=== PATIENT | female | born 1975 | race Caucasian/White ===

== ENCOUNTER 2017-02-28 11:34 | Emergency (ER) | payer MEDICAID ==
[2017-02-28 11:48] VITALS: RESP 16; TEMP 97.9
--- NOTE | 2017-02-28 11:52 | CPEKG ---
Heart Rate: 75 RR Interval: 800 P-R Interval: 160 QRSD Interval: 82 QT Interval: 368 QTC Interval: 411 P Cove: 24 QRS Cove: 41 T Wave Cove: 5 EKG Severity - NORMAL ECG - EKG Impression: SINUS RHYTHM Electronically Signed By: Chuck Jordan 01-Mar-2017 10:51:11
--- NOTE | 2017-02-28 12:11 | EDPHY ---
H & P Stated Complaint: CP since 2 am woke up with it. Time Seen by Provider: 02/28/17 11:45 HPI/ROS: CHIEF COMPLAINT: Chest discomfort HISTORY OF PRESENT ILLNESS: 41-year-old female reports waking at 2 o'clock this morning with right-sided chest discomfort which was worse with breathing. She said it felt sore like she might have pulled something. She was able go back to sleep. When she got up this morning she felt better, with only vague discomfort, but noticed that she was short of breath when she was walking her dog. She then reports bending down and developing significant right-sided chest discomfort. Discomfort has been present now for greater than 5 hours. Has been present now for several hours. Worse with inspiration, worse with movement, worse with raising her arms above her head. Pain radiates from the right parasternal region to the the substernal area. No nausea or vomiting. No palpitations. No dizziness. No lightheadedness. No fainting. She does report having a URI with significant sneezing and coughing. She also notes that over the last 3 weeks she has had issues with vomiting and diarrhea which she relates to increased stress. Patient returned 3 weeks ago from a trip to [place]. REVIEW OF SYSTEMS: Aside from elements discussed in the HPI, a comprehensive 10-point review of systems was reviewed and is negative. PAST MEDICAL HISTORY: Hypercholesterolemia. No history of hypertension or diabetes. No known coronary artery disease history. No personal history of DVTs or PEs. No family history. SOCIAL HISTORY: Smoker. Quit 4 years ago. Prior history of heavy alcohol use , none for several years. Denies illicit drugs. VITAL SIGNS: see nurse's notes. GENERAL: Well-developed, well-nourished, in mild discomfort when moving or raising her arms.. Patient rates the discomfort as 6/10. HEENT: Atraumatic. Eyes: No injection or icterus. Oropharynx: No erythema , no injection, no swelling. Neck: No JVD, no bruits, supple with no adenopathy. LUNGS: Clear to auscultation bilaterally, no wheezes, rhonchi or rales. CHEST: Palpable and reproducible tenderness to the right of his sternum at the level of T4. Just at the superior edge of the patient's breast. No crepitus. No warmth. No rash. CARDIAC: Regular rate and rhythm, no murmurs, no rubs, no gallops. ABDOMEN: Soft, nontender, nondistended, bowel sounds normal. BACK: No CVA tenderness. EXTREMITIES: No trauma. No clubbing, cyanosis or edema. Range of motion is normal throughout. NEURO: Alert and oriented , grossly nonfocal. SKIN: No diaphoresis, warm and dry, no rash. Scattered spider hemangiomas. - Personal History LMP (Females 10-55): Over 28 Days Ago Current Tetanus Diphtheria and Acellular Pertussis (TDAP): Yes - Medical/Surgical History Other PMH: back pain, high cholesterol, mild bipolar and PTSD - Social History Smoking Status: Former smoker Constitutional: Initial Vital Signs Temperature (C) 36.6 C 02/28/17 11:45 Heart Rate 82 02/28/17 11:45 Respiratory Rate 16 02/28/17 11:45 Blood Pressure 119/81 H 02/28/17 11:45 O2 Sat (%) 93 02/28/17 11:45 O2 Delivery Mode Room Air Allergies/Adverse Reactions: aspirin [Aspirin] Allergy (Intermediate, Verified 02/28/17 11:49) latex [Latex] Allergy (Intermediate, Verified 02/28/17 11:49) Sulfa (Sulfonamide Antibiotics) Allergy (Intermediate, Verified 02/28/17 11:49) hydrocodone bitartrate [From Vicodin] Allergy (Verified 02/28/17 11:49) nausea Home Medications: Medication Instructions Recorded Cyclobenzaprine [Flexeril 10 MG 10 mg PO TID 04/03/12 (RX)] Simvastatin [Zocor 40 mg (RX)] 40 mg PO DAILY18 04/03/12 Tramadol HCl [Ultram] 50 mg PO 04/03/12 SEROQUEL 09/03/13 Bupropion HCl 02/28/17 Guanfacine HCl 02/28/17 Ibuprofen 02/28/17 Viorele 28 Day Tablet 02/28/17 Medical Decision Making - Diagnostics EKG Interpretation: 12-LEAD EKG: Please see the full report in [facility]. My interpretation: Normal sinus rhythm Imaging Results: Imaging Impressions Chest X-Ray 02/28/17 11:57 Impression: No acute pulmonary disease. Imaging: I viewed and interpreted images myself ED Course/Re-evaluation: 41-year-old female presenting with chest discomfort on the right side which she noticed while sleeping last night. Pain and was present when she woke this morning but much less. Discomfort has continued through the morning. Pain is reproducible. Evaluation demonstrates a normal, nonischemic EKG, negative troponin despite greater than 4 hours of discomfort, normal lipase, normal liver function tests, negative D-dimer and normal chest x-ray. Patient received Toradol IV. We discussed reasons for her discomfort including muscle wall pain, pleurisy, reflux. We discussed reasons to return to the emergency department including persistent or worsening pain, palpitations, lightheadedness, fainting, radiation of pain into the neck or jaw, pain into the back, fevers or chills. Patient was advised to use ibuprofen on a regular basis, and was given a short course of oxycodone. She was also advised to watch for gastric upset in the setting of NSAID use. Differential Diagnosis: After history and physical examination, the differential for chest pain was considered, including but not limited to, myocardial ischemia, acute coronary syndrome, pulmonary embolus, chest wall pain, pleural inflammation and pulmonary infectious causes. - Data Points Laboratory Results: Laboratory Results 02/28/17 12:05 02/28/17 12:05 02/28/17 02/28/17 02/28/17 12:05 12:05 12:05 WBC RBC Hgb Hct MCV MCH MCHC RDW Plt Count MPV Neut % (Auto) Lymph % (Auto) Nelson % (Auto) Eos % (Auto) Baso % (Auto) Nucleat RBC Rel Count Absolute Neuts (auto) Absolute Lymphs (auto) Absolute Monos (auto) Absolute Eos (auto) Absolute Basos (auto) Absolute Nucleated RBC Immature Gran % Immature Gran # D-Dimer < 0.27 ug/mLFEU ug/mLFEU (0.00-0.50) Sodium 140 mEq/L mEq/L (134-144) Potassium 4.2 mEq/L mEq/L (3.5-5.2) Chloride 104 mEq/L mEq/L (97-110) Carbon Dioxide 22 mEq/l mEq/l (22-31) Anion Gap 14 mEq/L mEq/L (8-16) BUN 9 mg/dL mg/dL (7-23) Creatinine 0.7 mg/dL mg/dL (0.6-1.0) Estimated GFR > 60 Glucose 102 mg/dL H mg/dL (70-100) Calcium 9.1 mg/dL mg/dL (8.5-10.4) Total Bilirubin 0.2 mg/dL mg/dL (0.1-1.4) Conjugated Bilirubin 0.1 mg/dL mg/dL (0.0-0.5) Unconjugated Bilirubin 0.1 mg/dL mg/dL (0.0-1.1) AST 20 IU/L IU/L (14-46) ALT 30 IU/L IU/L (9-52) Alkaline Phosphatase 55 IU/L IU/L (38-126) Troponin I < 0.012 ng/mL ng/mL (0-0.034) Total Protein 6.8 g/dL g/dL (6.3-8.2) Albumin 3.8 g/dL g/dL (3.5-5.0) Lipase 220.0 IU/L IU/L (23-300) Beta HCG, Qual NEGATIVE 02/28/17 12:05 WBC 9.75 10^3/uL H 10^3/uL (3.80-9.50) RBC 4.36 10^6/uL 10^6/uL (4.18-5.33) Hgb 12.6 g/dL g/dL (12.6-16.3) Hct 37.5 % L % (38.0-47.0) MCV 86.0 fL fL (81.5-99.8) MCH 28.9 pg pg (27.9-34.1) MCHC 33.6 g/dL g/dL (32.4-36.7) RDW 13.8 % % (11.5-15.2) Plt Count 344 10^3/uL 10^3/uL (150-400) MPV 9.4 fL fL (8.7-11.7) Neut % (Auto) 54.9 % % (39.3-74.2) Lymph % (Auto) 33.3 % % (15.0-45.0) Nelson % (Auto) 8.1 % % (4.5-13.0) Eos % (Auto) 2.9 % % (0.6-7.6) Baso % (Auto) 0.4 % % (0.3-1.7) Nucleat RBC Rel Count 0.0 % % (0.0-0.2) Absolute Neuts (auto) 5.35 10^3/uL 10^3/uL (1.70-6.50) Absolute Lymphs (auto) 3.25 10^3/uL H 10^3/uL (1.00-3.00) Absolute Monos (auto) 0.79 10^3/uL 10^3/uL (0.30-0.80) Absolute Eos (auto) 0.28 10^3/uL 10^3/uL (0.03-0.40) Absolute Basos (auto) 0.04 10^3/uL 10^3/uL (0.02-0.10) Absolute Nucleated RBC 0.00 10^3/uL 10^3/uL (0-0.01) Immature Gran % 0.4 % % (0.0-1.1) Immature Gran # 0.04 10^3/uL 10^3/uL (0.00-0.10) D-Dimer Sodium Potassium Chloride Carbon Dioxide Anion Gap BUN Creatinine Estimated GFR Glucose Calcium Total Bilirubin Conjugated Bilirubin Unconjugated Bilirubin AST ALT Alkaline Phosphatase Troponin I Total Protein Albumin Lipase Beta HCG, Qual Medications Given: Discontinued Medications Ketorolac Tromethamine (Toradol) 15 mg IVP EDNOW ONE Stop: 02/28/17 12:59 Last Admin: 02/28/17 13:12 Dose: 15 mg Departure - Departure Disposition: Home, Routine, Self-Care Clinical Impression: Chest wall pain Chest pain Qualifiers: Chest pain type: chest pain on breathing Qualified Code(s): R07.1 - Chest pain on breathing Condition: Good Instructions: Pleurisy (ED), Costochondritis (ED), Chest Pain (ED) Additional Instructions: I suspect your chest pain may be due to chest wall discomfort, inflammation in the cartilage, or even pleurisy. All of these are treated with nonsteroidal anti-inflammatory medications, as well as narcotic pain medication if needed. I recommend Ibuprofen (Motrin, Advil) or Naproxen Sodium (Aleve) for pain and anti-inflammatory effects. You may take either one, but do not take both. Your dose is: Ibuprofen 600 mg every 6-8 hours with food. OR Naproxen Sodium (Aleve) 220 mg every 12 hours. You been given a prescription for oxycodone. Please use this as needed for significant discomfort. Return to the emergency department or follow up urgently with her primary care physician if your pain is worsening despite the above treatment, if he developed a significant rash, palpitations, lightheadedness, dizziness, sweating , or fainting. If your stomach is upset secondary to the use of nonsteroidals, you may take Maalox or Mylanta or Tums Referrals: Antionette Hardy MD [Primary Care Provider] - As per Instructions
[2017-02-28 12:22] LABS: % IMMATURE GRANULYOCYTES 0.4 % (0.0-1.1); ABSOLUTE IMMATURE GRANULOCYTES 0.04 10^3/uL (0.00-0.10); ADD DIFF? NO; ADD MORPH? NO; ADD SCAN? NO; ATYPICAL LYMPHOCYTE FLAG 10 (0-99); FRAGMENT RBC FLAG 0 (0-99); HEMATOCRIT 37.5 % (38.0-47.0); HEMOGLOBIN 12.6 g/dL (12.6-16.3); LEFT SHIFT FLG 0 (0-99); LIPEMIA HEMOLYSIS FLAG 80 (0-99); MEAN CELL HEMOGLOBIN 28.9 pg (27.9-34.1); MEAN CELL HEMOGLOBIN CONCENTR. 33.6 g/dL (32.4-36.7); MEAN PLATELET VOLUME 9.4 fL (8.7-11.7); PLATELET CLUMPS FLAG 0 (0-99); PLATELET COUNT 344 10^3/uL (150-400); RED BLOOD CELL COUNT 4.36 10^6/uL (4.18-5.33); RED CELL DISTRIBUTION WIDTH 13.8 % (11.5-15.2)
[2017-02-28 12:33] LABS: ALANINE AMINOTRANSFERASE 30 IU/L (9-52); ALBUMIN 3.8 g/dL (3.5-5.0); ALKALINE PHOSPHATASE 55 IU/L (38-126); ANION GAP 14 mEq/L (8-16); ASPARTATE AMINOTRANSFERASE 20 IU/L (14-46); BILIRUBIN,TOTAL 0.2 mg/dL (0.1-1.4); BILIRUBIN-CONJUGATED 0.1 mg/dL (0.0-0.5); BILIRUBIN-UNCONJUGATED 0.1 mg/dL (0.0-1.1); CALCIUM 9.1 mg/dL (8.5-10.4); CARBON DIOXIDE 22 mEq/l (22-31); CHLORIDE 104 mEq/L (97-110); CREATININE 0.7 mg/dL (0.6-1.0); GLOMERULAR FILTRATION RATE > 60; GLUCOSE 102 mg/dL (70-100); POTASSIUM 4.2 mEq/L (3.5-5.2); SODIUM 140 mEq/L (134-144); TOTAL PROTEIN 6.8 g/dL (6.3-8.2)
[2017-02-28 12:44] LABS: TROPONIN I < 0.012 ng/mL (0-0.034)
[2017-02-28] MEDS ORDERED: KETOROLAC 30 MG/1 ML SDV IVP ONE (12:58)
[2017-02-28] MEDS ORDERED: NS 500 ML IV ONE (12:58)
[2017-02-28 15:21] VITALS: BP 102/52; PULSE 67; O2SAT 95
== END 2017-02-28 13:42 | disposition home or self-care (01) ==
LOC: CED 11:34
DX: R07.1 Chest pain on breathing (principal); Z87.891 Personal history of nicotine dependence; Z91.040 Latex allergy status
CPT/HCPCS: 71020-PO; 80048-PO; 80076-PO; 83690-PO; 84484-PO; 84703-PO; 85025-PO; 85378-PO; 96374; J1885

== ENCOUNTER 2017-09-03 15:25 | Emergency (ER) | payer MEDICAID ==
[2017-09-03 15:37] VITALS: BP 142/80; PULSE 80; RESP 16; TEMP 98.8; O2SAT 95
[2017-09-03] MEDS ORDERED: traMADol 50 MG TAB PO ONE (15:51)
[2017-09-03] MEDS ORDERED: CYCLOBENZAPRINE 10 MG TAB PO ONE (15:51)
--- NOTE | 2017-09-03 15:56 | EDPHY ---
H & P Stated Complaint: fall on [address] . right ankle , left lower back pain . over 24hours Time Seen by Provider: 09/03/17 15:31 HPI/ROS: CHIEF COMPLAINT: Back and ankle pain HISTORY OF PRESENT ILLNESS: This is a 41-year-old female with long history of low back pain for which she takes tramadol and Flexeril as needed. She slipped on the ice over 24 hr ago, twisting her right ankle and landing on her back. She has had persistent low back pain radiating into her left hip since the fall. She denies leg numbness, leg weakness, and bowel or bladder problems. She has been able to walk but has pain involving the right ankle with weight- bearing. She took 1 tramadol the night that this event occurred and took 600 mg of ibuprofen this morning. She is not otherwise treated her pain. She denies other injuries with this fall. She did not strike her head. REVIEW OF SYSTEMS: A ten point review of systems was performed and is negative with the exception of the items mentioned in the HPI. Past medical history: 1. Bipolar disease 2. Reactive airway disease 3. Low back pain 4. Hyperlipidemia Social history: She does not use tobacco or alcohol products. General Appearance: Alert. Vital signs reviewed. Eyes: Pupils equal and round, no conjunctival injection, no discharge. Anicteric. ENT, Mouth: Mucous membranes are moist, no oropharyngeal erythema or edema. Neck: Nontender to palpation over the cervical spine in the midline. Respiratory: Lungs are clear to auscultation; no wheezes, rales, or rhonchi. Cardiovascular: Regular rate and rhythm; no murmur, rub, or gallop. Gastrointestinal: Abdomen is soft and nontender, no masses or organomegaly, bowel sounds normal. Skin: Warm and dry, no rashes on exposed skin, normal color. Back: Mild tenderness to palpation over the lower lumbar spine with through the bulk of her tenderness being in the left paraspinous musculature. Extremities: No lower extremity edema, no calf tenderness or swelling. Neurological: Alert and oriented. Moving all four extremities easily and equally. Strength is 5 over 5 bilaterally with testing of major motor groups in both lower extremities Sensation is intact to light touch over both lower extremities. Deep tendon reflexes are 2+ in the biceps and knees bilaterally. Psychiatric: Normal affect. - Personal History LMP (Females 10-55): 15-21 Days Ago Current Tetanus Diphtheria and Acellular Pertussis (TDAP): Yes - Medical/Surgical History Hx Asthma: Yes Hx Chronic Respiratory Disease: No Hx Diabetes: No Hx Cardiac Disease: No Hx Renal Disease: No Hx Cirrhosis: No Hx Alcoholism: No Hx HIV/AIDS: No Hx Splenectomy or Spleen Trauma: No Other PMH: back pain, high cholesterol, mild bipolar and PTSD - Social History Smoking Status: Former smoker Constitutional: Initial Vital Signs Temperature (C) 37.1 C 09/03/17 15:31 Heart Rate 80 09/03/17 15:31 Respiratory Rate 16 09/03/17 15:31 Blood Pressure 142/80 H 09/03/17 15:31 O2 Sat (%) 95 09/03/17 15:31 O2 Delivery Mode Room Air Allergies/Adverse Reactions: aspirin [Aspirin] Allergy (Intermediate, Verified 09/03/17 15:35) latex [Latex] Allergy (Intermediate, Verified 09/03/17 15:35) Sulfa (Sulfonamide Antibiotics) Allergy (Intermediate, Verified 09/03/17 15:35) hydrocodone bitartrate [From Vicodin] Allergy (Verified 09/03/17 15:35) nausea Home Medications: Medication Instructions Recorded Cyclobenzaprine [Flexeril 10 MG 10 mg PO TID 04/03/12 (RX)] Simvastatin [Zocor 40 mg (RX)] 40 mg PO DAILY18 04/03/12 Tramadol HCl [Ultram] 50 mg PO 04/03/12 SEROQUEL 09/03/13 Bupropion HCl 02/28/17 Guanfacine HCl 02/28/17 Ibuprofen 02/28/17 Viorele 28 Day Tablet 02/28/17 oxyCODONE/APAP 5/325 [Percocet 1 tab PO QID PRN #10 tab 02/28/17 5/325 (*)] CYCLOBENZAPRINE HCL [Flexeril] 5 mg PO TIDPRN PRN #12 tab 09/03/17 traMADol [Ultram 50 mg (*)] 50 mg PO Q6 #12 tab 09/03/17 Medical Decision Making - Diagnostics Imaging Results: Imaging Impressions Ankle X-Ray 09/03/17 15:51 Impression: 1. No acute osseous abnormality seen about the right ankle. 2. Lateral ankle sprain. Lumbar Spine X-Ray 09/03/17 15:51 Impression: 1. No acute abnormality seen about the lumbar spine. 2. Stable mild disk space narrowing at L1-L2 with marginal osteophytes from L1- L2 through L3-L4. ED Course/Re-evaluation: She received 50 mg of tramadol and 10 mg of Flexeril in the emergency department. These the medications that she typically takes for her back pain. X-ray of the right ankle does not show fracture or dislocation. X-rays of the back do not show fracture. An ankle stirrup brace was placed on her sprained ankle. She is able to ambulate with this. I have written prescriptions for small quantity of tramadol and Flexeril. She has no neurologic deficits not do not feel that additional imaging is needed. Her history and physical exam and imaging studies are consistent with a diagnosis of back sprain and ankle sprain. I have not found evidence of any other injuries related to this fall. I do not suspect infection or kidney stone, although these were considered. Differential Diagnosis: Back pain including but not limited to muscular pain, herniated disc, spine fracture, intra-abdominal causes and urinary tract infection. - Data Points Medications Given: Discontinued Medications Cyclobenzaprine HCl (Flexeril) 10 mg PO EDNOW ONE Stop: 09/03/17 15:52 Last Admin: 09/03/17 16:17 Dose: 10 mg Tramadol HCl (Ultram) 50 mg PO EDNOW ONE Stop: 09/03/17 15:52 Last Admin: 09/03/17 16:17 Dose: 50 mg Departure - Departure Disposition: Home, Routine, Self-Care Clinical Impression: Right ankle sprain Qualifiers: Encounter type: initial encounter Involved ligament of ankle: unspecified ligament Qualified Code(s): S93.401A - Sprain of unspecified ligament of right ankle, initial encounter Lumbar back sprain Qualifiers: Encounter type: initial encounter Qualified Code(s): S33.5XXA - Sprain of ligaments of lumbar spine, initial encounter Condition: Good Instructions: Ankle Sprain (ED), Low Back Strain (ED), Ankle Stirrup Splint (ED ) Additional Instructions: Adult Pain & Fever Control: We recommend Acetaminophen (Tylenol) and Ibuprofen (Motrin,Advil) for pain and fever control. When fever is high or pain severe, both drugs can be used at the same time, but at different intervals. Please note the time differences. Your dose is: Acetaminophen 650mg every 4 to 6 hours Ibuprofen 400mg every 6 hours with food OR Note: do not take Acetaminophen with Hydrocodone (Vicodin, Lortab) or Oycodone (Percocet). These medications also contain Acetaminophen. No more than 3000mg of Acetaminophen should be taken in 24 hours (for an adult). Use the tramadol and Flexeril as prescribed/needed. Further refills will need to come from Dr. Hardy. Referrals: Antionette Hardy MD [Primary Care Provider] - As per Instructions Prescriptions: CYCLOBENZAPRINE HCL [Flexeril] 5 mg PO TIDPRN PRN #12 tab PRN Reason: muscle spasm traMADol [Ultram 50 mg (*)] 50 mg PO Q6 #12 tab
== END 2017-09-03 17:19 | disposition home or self-care (01) ==
LOC: CED 15:25
DX: S33.5XXA Sprain of ligaments of lumbar spine, initial encounter (principal); S93.401A Sprain of unspecified ligament of right ankle, initial encounter; J45.909 Unspecified asthma, uncomplicated; Z87.891 Personal history of nicotine dependence; Z91.040 Latex allergy status; W01.0XXA Fall on same level from slipping, tripping and stumbling without subsequent striking against object, initial encounter
CPT/HCPCS: 72100-PO; 73610-PO; L4350

== ENCOUNTER → 2018-03-06 | Outpatient (CLI) | payer MEDICAID | LOC: FIMAGING 18:04 | PROVIDERS: ATTEND Family Medicine | DX: M50.123 Cervical disc disorder at C6-C7 level with radiculopathy (principal) ==